=== PATIENT | female | born 1985 | race Caucasian/White ===

== ENCOUNTER 2017-03-15 05:03 | Day surgery (SDC) | payer OTHER ==
[2017-03-14 14:09] VITALS: BMI 30.2
--- NOTE | 2017-03-15 09:13 | HP ---
Past Medical History - Primary Care Physician PCP:: Roxana Paulino - Admission Chief Complaint: 31 yrs , s/p lactational amenorrhea, LD 11/07/16 m requests for voluntory sterlization History of Present Illness: pt has care at [address] [place] [address] . Past MH 28-30 days, normal regular,cycle,normal blood loss, mild cramps on & off contraception in past h/o Nexplanon inserted , got removed after few days . sexually active , LD 11/07/16. breast feeding History Source: Patient, Medical Record Limitations to Obtaining History: No Limitations - Past Medical History CORN PICKER: No: Migraine, Seizure Cardiovascular: Yes: HTN (? h/o labile HTN during pregn) Pulmonary: No: Asthma Gastrointestinal: Yes: Hemorrhoids. No: Gastritis Renal/: No: UTI Reproductive: Yes: Other. No: Ectopic ( 03/28/16 h/o abn pap HSIL during pregn . 04/20/16 colposcopy bx HSIL& LSIl. 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 currently no meds. h/o HPV HR pos) Psych: Yes: Depression (mild depression sometimes, no meds reqd) - Past Surgical History Past Surgical History: Yes: None, Appendectomy (2010) Hx Myomectomy: No Hx Transabdominal Cerclage: No Additional Surgical History: 01/22/17 Cone Biopsy at [facility] - Smoking History Smoking history: Never smoked Have you smoked in the past 12 months: No - Alcohol/Substance Use Hx Alcohol Use: No History of Substance Use: reports: None - Social History History of Recent Travel: No Home Medications - Allergies Allergies/Adverse Reactions: Allergies Allergy/AdvReac Type Severity Reaction Status Date / Time No Known Allergies Allergy Verified 03/15/17 08:44 - Home Medications Home Medications: Ambulatory Orders Vit Calc,Iron,Folic [ Vitamins] 1 each PO DAILY 11/06/16 Ferrous Sulfate [Feosol] 325 mg PO BIDWM #60 ud 11/08/16 Ibuprofen [Motrin -] 200 mg PO Q4H PRN #0 tablet 11/08/16 Vitamins (Sjr) - 1 tab PO DAILY #30 tablet 11/08/16 Physical Exam-CHOCOLATIER Vital Signs: Vital Signs Temperature 97.7 F 03/15/17 08:26 Pulse Rate 53 L 03/15/17 08:26 Respiratory Rate 16 03/15/17 08:26 Blood Pressure 109/60 03/15/17 08:26 O2 Sat by Pulse Oximetry (%) 99 03/15/17 08:26 Constitutional: Yes: Well Nourished Eyes: Yes: WNL HENT: Yes: WNL Neck: Yes: WNL Cardiovascular: Yes: Pulse Irregular Respiratory: Yes: WNL Gastrointestinal: Yes: WNL, Normal Bowel Sounds, Soft ...Rectal Exam: Yes: WNL Renal/: Yes: WNL Pelvis: Yes: WNL External Genitalia: Yes: Normal Vaginal Exam: Yes: Normal Cervix: Yes: Normal Uterus: Yes: Normal, Freely Moveable, Anteverted, Firm. No: Tender Adnexa: Normal: Bilateral, Not Palpable: Bilateral Breast(s): Yes: WNL, Discharge from Nipple (milk secretion , breast feeding). No: Mass Musculoskeletal: Yes: WNL Extremities: Yes: WNL. No: Calf Tenderness Edema: No Integumentary: Yes: WNL, Incision (appendectomy scar in RLQ) Wound/Incision: Yes: Excoriated ...Motor Strength: WNL Psychiatric: Yes: WNL, Alert, Oriented Labs: Laboratory Tests 11/07/16 03/11/17 03/11/17 05:30 19:13 19:13 WBC Hgb Hct Plt Count Neutrophils % Lymphocytes % Monocytes % INR 0.89 PTT (Actin FS) 29.3 Sodium 140 Potassium 3.8 Chloride 102 Carbon Dioxide 26 D BUN 8 D Creatinine 0.5 L D Random Glucose 86 AST 34 ALT 51 Beta HCG, Quant < 1.0 Ur Leukocyte Esterase 3+ H Urine RBC 3 Urine WBC 24 Urine HCG, Qual 03/11/17 03/15/17 19:13 08:05 WBC 7.7 D Hgb 13.4 D Hct 40.1 D Plt Count 256 D Neutrophils % 55.9 D Lymphocytes % 36.9 D Monocytes % 5.4 INR PTT (Actin FS) Sodium Potassium Chloride Carbon Dioxide BUN Creatinine Random Glucose AST ALT Beta HCG, Quant Ur Leukocyte Esterase Urine RBC Urine WBC Urine HCG, Qual Negative Problem List - Problem (1) Multiparity Code(s): Z64.1 - PROBLEMS RELATED TO MULTIPARITY Assessment/Plan 31 yrs , requests for voluntory sterlization Plan pelviscopic bilateral tubal fulgration
[2017-03-15] MEDS ORDERED: MIDAZOLAM HCL 2 MG/2 ML SINGLE DOSE VIAL ONE (09:40)
[2017-03-15] MEDS ORDERED: PROPOFOL 20 ML ONE (09:40)
[2017-03-15] MEDS ORDERED: ROCURONIUM BROMIDE 50 MG/5 ML VIAL ONE (09:40)
[2017-03-15] MEDS ORDERED: LIDOCAINE HCL/PF 2% SDV 5ML VIAL ONE (09:40)
[2017-03-15] MEDS ORDERED: BUPIVACAINE HCL/PF (5 MG/ML) 30 ML VIAL IJ ONE (10:58)
[2017-03-15] MEDS ORDERED: GLYCOPYRROLATE 0.2 MG/1 ML VIAL ONE ×2 (10:59→11:00)
[2017-03-15] MEDS ORDERED: NEOSTIGMINE METHYLSULFATE 0.5 MG/ML - 10 ML MDV ONE (10:59)
[2017-03-15] MEDS ORDERED: ONDANSETRON 4 MG/2 ML VIAL IVPUSH PRN (11:13)
[2017-03-15] MEDS ORDERED: PROMETHAZINE HCL 25 MG/1 ML VIAL IVPUSH PRN (11:13)
[2017-03-15] MEDS ORDERED: oxyCODONE HCL 5 MG TABLET PO PRN (11:13)
--- NOTE | 2017-03-15 11:23 | OP ---
Operative Note - Note: Operative Date: 03/15/17 Pre-Operative Diagnosis: multiparity, voluntory sterlization Operation: Pelviscopic Bilateral salpingectomy Findings: UT AV , NS,. Mobile Both Tubes & Ovaries normal culde sac free Both tubes excised upto cornual end with Ligasure biploar cautery Surgeon: Roxana Paulino Department Editor: Venecia García) Anesthesiologist/SPINE SPECIALIST: Nate Bush Anesthesia: General Specimens Removed: Ltube. Rt Tube Estimated Blood Loss (mls): 2 Drains, Volume Out (mls): 250 Fluid Volume Replaced (mls): 800 Operative Report Dictated: Yes
[2017-03-15] MEDS ORDERED: IBUPROFEN 600 MG TABLET (FP) PO PRN (11:28)
[2017-03-15] MEDS ORDERED: ACETAMINOPHEN 325 MG TABLET (FP) PO PRN (11:28)
[2017-03-15 12:08] VITALS: TEMP 97.8
[2017-03-15] MEDS ORDERED: oxyCODONE HCL 5 MG TABLET ONE (12:36)
[2017-03-15 13:05] VITALS: BP 112/57; PULSE 75
--- NOTE | 2017-03-15 13:35 | OP ---
DATE OF OPERATION: 03/15/2017 PREOPERATIVE DIAGNOSIS: Multiparity, voluntary sterilization. OPERATION DONE: Bilateral pelviscopic salpingectomy. SURGEON: Roxana Paulino MD SHELL FREEZING MACHINE OPERATOR SURGEON: OCTAVIANO Back ANESTHESIOLOGIST: Nate Bush MD FINDINGS: A 31-year-old 3, para 3-0-0-3, test negative, last delivery was November 07, 2016. Patient has lactational amenorrhea and she is breast feeding. PROCEDURE: Patient was taken to the operating room table and general anesthesia was given. Abdomen, pubis, perineum were painted with Betadine, draped in usual manner. She was placed in the lithotomy position before prep and then timeout was done. Pelvic examination was done. Uterus was anteverted, normal size, mobile. Cervix was posterior. Adnexae were not palpable. Weighted speculum was put. Anterior lip of the cervix was held with a single-tooth tenaculum. ZUMI cannula was introduced and then tenaculum and the speculum was removed. Vela catheter was placed. Proceeded with the pelviscopy. Gloves were changed and the position was readjusted. Then, small incision was made at the umbilicus and Veress needle was introduced. CO2 was insufflated into the peritoneal cavity and then 5-mm trocar and cannula were introduced in from the umbilical incision. Intraperitoneal insertion was confirmed and first left lower quadrant another 5-mm trocar and cannula were introduced after making the incision. The pelvic viscera were inspected and from the right side right lower quadrant incision was made and 5-mm trocar and cannula were introduced. The uterus was normal. Both tubes and ovaries were normal. Cul-de-sac was free from the right side. First, the left tube was cauterized & cut with Ligasure bipolar cautery in multiple serial steps from the fimbrial end towards the cornual end in the mesosalpinx area. Close to the tube , the mesosalpinx was cauterized and cut, cauterized and cut until cornual end was reached and then the cornual end was cauterized. Hemostasis was checked and then the tube was removed with a grasper. Similar procedure also was done on the right tube and hemostasis was checked. Patient tolerated procedure well. Upper abdomen was inspected also which was normal and gas was removed from the abdomen and all the trocars were removed. Marcaine was infiltrated at all 3 incisions with Biosyn deep suture was taken and the skin was approximated with Dermabond. The ZUMI cannula and the Vela catheter were removed and the patient was transferred to the recovery room in stable condition. She received 800 mL of crystalloid solution. Urine output was 250 in the Vela bag. Anthony [id number] MTDD
[2017-03-15] MEDS ORDERED: BUPIVACAINE HCL/PF 0.5% (5MG/ML) 10 ML VIAL ONE (14:33)
--- NOTE | 2017-03-18 13:05 | PATH ---
Surgical Pathology Report Patient Name: GUILLERMO VILLELA [facility]. Rec. #: [id number] /Age/Gender: 1985 (Age: 31) / F Account: [id number] Location: [facility] SURGICAL Taken: 03/15/2017 Received: 03/15/2017 Reported: 03/18/2017 Physicians: Roxana Paulino M.D. Specimen(s) Received A: LEFT FALLOPIAN TUBE B: RIGHT FALLOPIAN TUBE Clinical History Multiparity, voluntary sterilization Final Diagnosis A. FALLOPIAN TUBE, RIGHT, SALPINGECTOMY: BENIGN FALLOPIAN TUBE WITH COMPLETE CROSS SECTION. B. FALLOPIAN TUBE, LEFT SALPINGECTOMY: BENIGN FALLOPIAN TUBE WITH COMPLETE CROSS SECTION. Electronically Signed Jorge Lake M.D. Gross Description A. Received in formalin labeled "right fallopian tube" is a 5.5 cm in length fimbriated portion of fallopian tube. The outer surface is mccurdy-pink and smooth. Sectioning reveals a pinpoint lumen. [place] sections are submitted in 2 cassettes as follows: 1-fimbria; 2-cross sections of fallopian tube. B. Received in formalin labeled "left fallopian tube" are 2 portions of fallopian tube measuring 2.0 and 2.5 cm in length. The longer portion displays attached fimbria. The outer surfaces are mccurdy-pink and smooth. Sectioning reveals a pinpoint lumen. [place] sections are submitted in 2 cassettes as follows: 1-fimbria; 2-cross sections of fallopian tube. /03/15/2017/03/15/2017
--- NOTE | 2017-03-22 07:51 | SURG ---
Surgery Automation Developer Note Automation Developer: Venecia García PA-C Date of Service: 03/15/17 Diagnosis: multiparity, voluntary sterilization Procedure: laparoscopic bilateral salpingectomy I was present for the entirety of the operative procedure. For further detail, please refer to operative report. Visit type - Case Type Case Type: Scheduled Admission
== END 2017-03-15 13:40 | disposition home or self-care (01) ==
LOC: JASU-SURG 05:03
PROVIDERS: ATTEND Obstetrics & Gynecology
PROC: 0UB74ZZ Excision of Bilateral Fallopian Tubes, Percutaneous Endoscopic Approach (ICD-10-PCS; principal; 2017-03-15 09:30)
DX: Z30.2 Encounter for sterilization (principal); Z64.1 Problems related to multiparity
CPT/HCPCS: 84703; 88302-TC; 94760

== ENCOUNTER 2018-01-14 10:25 | Emergency (ER) | payer OTHER ==
[2018-01-14 10:40] VITALS: BMI 26.9
--- NOTE | 2018-01-14 10:51 | PDOC ---
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 Perdue, also had cone biopsy 01/[address] [facility] showing CIN2 with clear margins, who p/w pelvic pain. She was seen by her HEAD OF MEASUREMENT & INSIGHTS four days ago and had pelvic exam and PAP smear. Her provider reportedly did not see any abnormalities on exam, and the patient does not know the results of the PAP yet. She had an onset of minimal pain four days ago at the time of the exam, and discussed this with Dr. Perdue, but was not concerned at the time because the pain was minimal. However over the past two days the pain increased. It was fluctuating at first, but is now a constant 8/10 radiating to the back (left worse than right low back). She took Motrin at home for the pain without relief. She additionally notes mild headache recently, but denies fever , chills, nausea, vomiting, dizziness, chest pain, SOB, pain on urination, strange colors/smells to urine, blood in the urine, vaginal bleeding or discharge, diarrhea, constipation, night sweats, weight loss, swollen lymph nodes, or other symptoms. <Mirna Martinez - Last Filed: 01/14/18 16:07> - General Chief Complaint: Pain, Acute Stated Complaint: RT SIDE PAIN Past History <Jt Hester - Last Filed: 01/14/18 15:45> - Past Medical History Anemia: No Asthma: No Cancer: No Cardiac Disorders: No CVA: No COPD: No CHF: No Dementia: No Diabetes: No GI Disorders: No Disorders: No HTN: No Hypercholesterolemia: No Liver Disease: No Seizures: No Thyroid Disease: No - Surgical History Abdominal Surgery: No Appendectomy: Yes (2011) Cardiac Surgery: No Cholecystectomy: No Lung Surgery: No Neurologic Surgery: No Orthopedic Surgery: No - Immunization History Immunization Up to Date: Yes - Suicide/Smoking/Psychosocial Hx Smoking History: Never smoked Have you smoked in the past 12 months: No Hx Alcohol Use: No Drug/Substance Use Hx: No Substance Use Type: None Hx Substance Use Treatment: No <Mirna Martinez - Last Filed: 01/14/18 16:07> - Past Medical History Allergies/Adverse Reactions: Allergies Allergy/AdvReac Type Severity Reaction Status Date / Time No Known Allergies Allergy Verified 01/14/18 10:30 Home Medications: Ambulatory Orders Acetaminophen [Tylenol .Regular Strength -] 650 mg PO Q4H PRN #0 tablet Doxycycline Monohydrate [Mondoxyne Nl] 100 mg PO BID #14 capsule 01/14/18 Medroxyprogesterone Acetate [Provera] 5 mg PO DAILY #14 tablet 01/14/18 Review of Systems - Review of Systems Able to Perform ROS?: Yes Constitutional: No: Chills, Fever, Unexplained wgt Loss HEENTM: No: Nose Congestion, Throat Pain Respiratory: No: Cough, Shortness of Breath Cardiac (ROS): No: Chest Pain, Palpitations ABD/GI: Yes: Other (abdominal pain). No: Constipated, Diarrhea, Nausea, Vomiting : No: Burning, Dysuria Musculoskeletal: No: Back Pain, Neck Pain Integumentary: No: Bruising, Rash Neurological: Yes: Headache (mild). No: Numbness, Tingling, Weakness, Dizziness Endocrine: No: Unexplained Weight Gain, Unexplained Weight Loss <Mirna Martinez - Last Filed: 01/14/18 16:07> *Physical Exam - Vital Signs Last Vital Signs Temp Pulse Resp BP Pulse Ox 97.7 F 72 20 110/66 99 01/14/18 10:31 01/14/18 10:31 01/14/18 10:31 01/14/18 10:31 01/14/18 10:31 <Jt Hester - Last Filed: 01/14/18 15:45> - Vital Signs Last Vital Signs Temp Pulse Resp BP Pulse Ox 97.7 F 72 20 110/66 99 01/14/18 10:31 01/14/18 10:31 01/14/18 10:31 01/14/18 10:31 01/14/18 10:31 - Physical Exam General Appearance: Yes: Nourished, Appropriately Dressed, Other (well- appearing nontoxic female who is Gren[place]-speaking, answering questions appropriately, accompanied by SO and at the bedside). No: Apparent Distress HEENT: positive: EOMI, KAYLA, Normal Voice, Hearing Grossly Normal. negative: Scleral Icterus (R), Scleral Icterus (L), Nasal Congestion Neck: positive: Trachea midline, Supple. negative: Tender, Rigid Respiratory/Chest: positive: Lungs Clear, Normal Breath Sounds. negative: Respiratory Distress, Crackles, Rhonchi, Stridor, Wheezing Cardiovascular: positive: Regular Rhythm, Regular Rate. negative: Edema, JVD, Murmur Female Pelvic Exam: positive: normal external exam, cervical os closed, CMT, discharge (moderate thick white), adnexal tenderness (right>left). negative: vaginal bleeding Gastrointestinal/Abdominal: positive: Normal Bowel Sounds, Tender (moderate suprapubic and mild RLQ and LLQ and umbilical ttp, +ttp McBurney's point, no midline pulsatile masses, no hernias, prominent striae, negative Dejesus's sign) , Soft. negative: Organomegaly, Pulsatile Mass, Guarding Musculoskeletal: positive: Normal Inspection. negative: Decreased Range of Motion, Vertebral Tenderness Extremity: positive: Normal Capillary Refill, Normal Inspection, Normal Range of Motion. negative: Tender, Cyanosis Integumentary: positive: Normal Color, Dry, Warm. negative: Erythema, Rash, Bruising Neurologic: positive: academic administrator II-XII NML intact (grossly), Fully Oriented, Alert, Normal Mood/Affect, Normal Response, Motor Strength 5/5 <Martinez,Mary - Last Filed: 01/14/18 16:07> ED Treatment Course - LABORATORY CBC & Chemistry Diagram: 01/14/18 11:21 01/14/18 11:21 - ADDITIONAL ORDERS Additional order review: Laboratory Results 01/14/18 01/14/18 01/14/18 11:21 11:21 11:21 PT with INR INR Sodium 140 Potassium 3.8 Chloride 106 Carbon Dioxide 23 Anion Gap 11 BUN 10 Creatinine 0.5 L Creat Clearance w eGFR > 60 Random Glucose 91 Calcium 8.2 L Phosphorus 3.5 Magnesium 2.0 Total Bilirubin 0.2 D AST 15 ALT 27 Alkaline Phosphatase 91 Total Protein 7.5 Albumin 3.8 Lipase 155 Serum , Qual Negative Urine Color Straw Urine Appearance Clear Urine pH 6.0 Ur Specific [place] 1.008 Urine Protein Negative Urine Glucose (UA) Negative Urine Ketones Negative Urine Blood Negative Urine Nitrite Negative Urine Bilirubin Negative Urine Urobilinogen Negative Ur Leukocyte Esterase Negative 01/14/18 11:21 PT with INR 10.60 INR 0.94 Sodium Potassium Chloride Carbon Dioxide Anion Gap BUN Creatinine Creat Clearance w eGFR Random Glucose Calcium Phosphorus Magnesium Total Bilirubin AST ALT Alkaline Phosphatase Total Protein Albumin Lipase Serum , Qual Urine Color Urine Appearance Urine pH Ur Specific [place] Urine Protein Urine Glucose (UA) Urine Ketones Urine Blood Urine Nitrite Urine Bilirubin Urine Urobilinogen Ur Leukocyte Esterase 01/14/18 11:21 RBC 4.35 MCV 89.8 MCHC 34.7 RDW 13.3 MPV 8.0 Neutrophils % 67.9 D Lymphocytes % 25.6 D Monocytes % 5.1 Eosinophils % 1.0 Basophils % 0.4 - Medications Given in the ED: ED Medications Discontinued Medications Generic Name Dose Route Start Last Admin Trade Name Sun PRN Reason Stop Dose Admin Acetaminophen 1,000 mg 01/14/18 11:19 01/14/18 11:35 Ofirmev Injection - IVPB 01/14/18 11:20 1,000 mg ONCE ONE Administration Ceftriaxone Sodium 250 mg 01/14/18 14:56 01/14/18 15:29 Rocephin - IM 01/14/18 14:57 250 mg ONCE ONE Administration Doxycycline Hyclate 100 mg 01/14/18 14:56 01/14/18 15:18 Vibramycin - PO 01/14/18 14:57 100 mg ONCE ONE Administration Fluconazole 200 mg 01/14/18 13:13 01/14/18 14:09 Diflucan - PO 01/14/18 13:14 200 mg ONCE ONE Administration <Jt Hester - Last Filed: 01/14/18 15:45> - LABORATORY CBC & Chemistry Diagram: 01/14/18 11:21 01/14/18 11:21 <Mirna Martinez - Last Filed: 01/14/18 16:07> Medical Decision Making - Medical Decision Making 32 YOF h/o PID, HSV, HPV, ELMO 2 resected, p/w 4 days worsening pelvic pain acutely worse for the past day. No menses for more than a year. On exam VS wnl, mod suprapubic, RLQ, LLQ ttp, pelvic with moderate thick white discharge, sample sent to lab. DDX IBNLT PID, TOA, ruptured/hemorrhaging ovarian cyst, UTI, dysmenorrhea, endometritis, cervicitis, constipation, fibroids, etc. Ordered is CBCD CMP Mg Phos INR GC/Chlam/trich amplification (cervical swab), GC culture, Ofirmev, Toradol, transvaginal US. 01/14/18 13:22 Lab work unremarkable except slight low calcium 8.3, UA negative. Still awaiting amplification tests and patient will be called if positive results. Patient's ultrasound shows distended uterus with intrauterine pocket of fluid of unknown etiology. Page sent to patient's HEAD OF MEASUREMENT & INSIGHTS Dr. Perdue. 01/14/18 16:01 We did speak with Dr. Perdue who believes the pelvic fluid pocket could be retained menses. Recommends Depot pills 5 mg daily for 10 days, as well as our ceftriaxone/doxy treatment plan. The patient is comfortable with this plan and will call Dr. Perdue's office tomorrow morning. Repeat abdominal exam is benign. Return precautions are discussed. <Mirna Martinez - Last Filed: 01/14/18 16:07> *DC/Admit/Observation/Transfer - Discharge Dispostion Admit: No <KacieJt - Last Filed: 01/14/18 15:45> - Discharge Dispostion Admit: No <Mirna Martinez - Last Filed: 01/14/18 16:07> Diagnosis at time of Disposition: Pelvic pain - Discharge Dispostion Disposition: HOME Condition at time of disposition: Stable - Prescriptions Prescriptions: Doxycycline Monohydrate [Mondoxyne Nl] 100 mg PO BID #14 capsule Medroxyprogesterone Acetate [Provera] 5 mg PO DAILY #14 tablet - Referrals Referrals: Roxana Paulino MD [Staff Physician] - - Patient Instructions Printed Discharge Instructions: DI for Pelvic Inflammatory Disease Additional Instructions: Take antibiotic as prescribed. Take Provera control as prescribed for 2 weeks. Follow-up with your HEAD OF MEASUREMENT & INSIGHTS in one week. Return to the emergency department immediately for any fever severe worsening abdominal pain or for any concerns. Print Language: SYRIAC
[2018-01-14] MEDS ORDERED: ACETAMINOPHEN 1000 MG/100 ML VIAL (NON FORMULARY) IVPB ONE (11:19)
[2018-01-14] MEDS ORDERED: ACETAMINOPHEN INJECTION 100 ML IVPB ONE (11:26)
[2018-01-14 11:29] LABS: BASO % 0.4 % (0-2.0); HEMOGLOBIN 13.5 GM/dL (10.7-15.3); LYMPH % 25.6 % (8-40); MCH 31.1 pg (25.7-33.7); MCHC 34.7 g/dl (32.0-36.0); MEAN CELL VOLUME 89.8 fl (80-96); MONO % 5.1 % (3.8-10.2); NEUT % 67.9 % (42.8-82.8); PLATELET COUNT 241 K/MM3 (134-434); RBC 4.35 M/mm3 (3.60-5.2); RDW 13.3 % (11.6-15.6)
[2018-01-14 11:31] LABS: URINE APPEARANCE CLEAR; URINE BILIRUBIN NEGATIVE (NEGATIVE); URINE BLOOD NEGATIVE (NEGATIVE); URINE COLOR STRAW; URINE GLUCOSE (UA) NEGATIVE (NEGATIVE); URINE KETONE NEGATIVE (NEGATIVE); URINE LEUK ESTERASE NEGATIVE (NEGATIVE); URINE NITRITE NEGATIVE (NEGATIVE); URINE PROTEIN NEGATIVE (NEGATIVE); URINE UROBILINOGEN NEGATIVE mg/dL (0.2-1.0)
[2018-01-14 11:49] LABS: INR 0.94 (0.82-1.09); PROTHROMBIN TIME (PATIENT) 10.6 SEC (9.98-11.88)
[2018-01-14 12:07] LABS: ALBUMIN 3.8 g/dl (3.4-5.0); ANION GAP 11 (8-16); BLOOD UREA NITROGEN 10 mg/dL (7-18); CALCIUM 8.2 mg/dL (8.5-10.1); CHLORIDE 106 mmol/L (98-107); CO2 23 mmol/L (21-32); CREATININE 0.5 mg/dL (0.55-1.02); GLUCOSE,RANDOM 91 mg/dL (74-106); LIPASE 155 U/L (73-393); POTASSIUM 3.8 mmol/L (3.5-5.1); SGOT/AST 15 U/L (15-37); SGPT/ALT 27 U/L (12-78); SODIUM 140 mmol/L (136-145)
[2018-01-14 12:10] LABS: ALK PHOS 91 U/L (45-117); BILIRUBIN,TOTAL 0.2 mg/dL (0.2-1.0); PHOSPHOROUS 3.5 mg/dL (2.5-4.9); TOT PROT 7.5 g/dl (6.4-8.2)
--- NOTE | 2018-01-14 13:07 | PDOC ---
Attending Attestation - HPI HPI: 01/14/18 13:18 The patient is a 32-year-old female, , with a significant past medical history of PID, HSV on buttocks, HPV, and s/p bilateral salpingectomy (03/2017), who presents to the emergency department with pelvic pain for 4 days. She states she had a pelvic exam with Dr. Paulino the same day that the pain started, but the pain was present before the exam. She states the pain started out as mild and fluctuating, but has since become more severe and constant. She reports the pain radiates to her low back, left low back worse than right. She also notes a mild headache. The patient denies chest pain, shortness of breath, and dizziness. The patient denies fever, chills, diaphoresis, nausea, vomit, diarrhea and constipation. The patient denies dysuria, frequency, urgency, hematuria, vaginal bleeding or discharge. <GerPat - Last Filed: 01/14/18 13:18> - Resident Resident Name: Mirna Martinez - ED Attending Attestation I have performed the following: I have examined & evaluated the patient, The case was reviewed & discussed with the resident, I agree w/resident's findings & plan, Exceptions are as noted - Physicial Exam PE: 01/14/18 14:48 Vitals: Triage Vital signs reviewed General Appearance: no acute distress, well nourished well developed, Head: Atraumatic, Chest Wall: Nontender Cardiac: Regular rate and rhythym, no murmurs, no rubs, no gallops, Lungs: Clear to auscultation bilateral, good air movement bilaterally, Abdomen: Soft, non distended, normal bowel sounds, non tender to palpation Extremities: Full range of motion to all extremities, no cyanosis, clubbing, or edema Skin: Warm and dry, no rashes or lesions, no rash, no petechiae Neuro: AOX3; Cranial Nerves 2-12 grossly intact, Strength intact to all extremities, Sensation intact to all extremities Psych: normal mood, normal affect - Medical Decision Making 01/14/18 15:57 Patient well-appearing no apparent distress very mild suprapubic tenderness on exam there was mild CMT on the resident's pelvic examination with some discharge consistent with yeast infection. No fever no elevated white blood cell count laboratory analysis otherwise unremarkable. Given 5 day history of symptomatology waxing and waning symptoms very low suspicion for acute intra- abdominal surgical process at this time. Ultrasound findings discussed with patient's RADIOLOGICAL TECHNOLOGIST. She believes the fluid seen in the endometrial canal is from irregular menses recommended Provera 5 mg daily for the next 2 weeks agrees with plan for outpatient PID treatment with Dr. deleon and ceftriaxone given in the ED. Patient will follow-up with her RADIOLOGICAL TECHNOLOGIST 1 week. She'll return to the emergency department for any severe worsening symptoms or for any concerns. <Jt Hester - Last Filed: 01/14/18 15:57>
[2018-01-14] MEDS ORDERED: FLUCONAZOLE 100 MG TABLET (UD) PO ONE (13:13)
[2018-01-14] MEDS ORDERED: FLUCONAZOLE 100 MG TABLET (UD) ONE (14:03)
[2018-01-14] MEDS ORDERED: DOXYCYCLINE HYCLATE 100 MG CAPSULE PO ONE ×2 (14:56→15:10)
[2018-01-14] MEDS ORDERED: cefTRIAXone SODIUM 1 GM VIAL ONE (15:10)
[2018-01-14 16:37] VITALS: BP 106/71; PULSE 70; TEMP 97.8
== END 2018-01-14 16:37 | disposition home or self-care (01) ==
LOC: JER 10:25
PROC: 3E033NZ Introduction of Analgesics, Hypnotics, Sedatives into Peripheral Vein, Percutaneous Approach (ICD-10-PCS; principal; 2018-01-14)
PROC: 3E02329 Introduction of Other Anti-infective into Muscle, Percutaneous Approach (ICD-10-PCS; 2018-01-14)
DX: N73.8 Other specified female pelvic inflammatory diseases (principal)
CPT/HCPCS: 36415; 76830-TC; 80053; 81003; 83690; 83735; 84100; 84703; 85025; 85610; 87081; 87086; 87491; 87591; 87661; 96372; 96374; 99284-25; J0131

== ENCOUNTER 2021-03-22 10:27 | Emergency (ER) | payer OTHER ==
[2021-03-22 10:41] VITALS: BP 127/78; PULSE 64; TEMP 97.9; BMI 30.8
[2021-03-22 11:34] LABS: EPI CELLS 13 /uL (0-25.1); HCG,QUALITATIVE URINE Negative; HYALINE CASTS 0 /uL (0-3.1); PH,URINE 7.5 (5.0-8.0); URINE APPEARANCE CLEAR; URINE BACTERIA 184 /uL (0-1359); URINE BILIRUBIN NEGATIVE (NEGATIVE); URINE COLOR YELLOW; URINE GLUCOSE (UA) NEGATIVE (NEGATIVE); URINE KETONE NEGATIVE (NEGATIVE); URINE LEUK ESTERASE NEGATIVE (NEGATIVE); URINE NITRITE NEGATIVE (NEGATIVE); URINE PROTEIN NEGATIVE (NEGATIVE); URINE RBC 12 /uL (0-23.9); URINE UROBILINOGEN 0.2 mg/dL (0.2-1.0); URINE WBC 2 /uL (0-25.8)
== END 2021-03-22 11:54 | disposition home or self-care (01) ==
LOC: JER 10:27 → JERFT 10:27
DX: N64.4 Mastodynia (principal); M54.6 Pain in thoracic spine
CPT/HCPCS: 81003; 84703; 87086; 99283-25

== ENCOUNTER 2024-11-13 20:04 | Emergency (ER) | payer OTHER ==
[2024-11-13 20:10] VITALS: RESP 18; TEMP 99.1; BMI 29.2
[2024-11-13 21:23] LABS: BASO % 0.6 % (0-2.0); EOS % 0.2 % (0-4.5); HEMATOCRIT 35.5 % (32.4-45.2); HEMOGLOBIN 11.9 GM/dL (10.7-15.3); MCH 29.6 pg (25.7-33.7); MCHC 33.5 g/dl (32.0-36.0); MEAN CELL VOLUME 88.2 fl (80-96); MONO % 7.4 % (3.8-10.2); NEUT % 75.8 % (42.8-82.8); PLATELET COUNT 295 10^3/uL (134-434); RBC 4.03 M/mm3 (3.60-5.2); RDW 12.7 % (11.6-15.6); WHITE BLOOD COUNT 12.8 K/mm3 (4.0-10.0)
[2024-11-13 21:44] LABS: INR 1.15 (0.83-1.09); PROTHROMBIN TIME (PATIENT) 12.9 SEC (9.7-13.0)
[2024-11-13 21:45] LABS: POTASSIUM 3.5 mmol/L (3.5-5.1)
[2024-11-13 21:47] LABS: ACTIVATED PTT 34.2 SECONDS (25.2-36.5)
[2024-11-13 21:53] LABS: BLOOD UREA NITROGEN 8.7 mg/dL (7-18)
[2024-11-13 21:54] LABS: ALBUMIN 3.4 g/dl (3.4-5.0)
[2024-11-13 21:56] LABS: CREATININE 0.5 mg/dL (0.55-1.3)
[2024-11-13 21:57] LABS: BILIRUBIN,TOTAL 0.4 mg/dL (0.2-1)
[2024-11-13 21:58] LABS: TOT PROT 7.5 g/dl (6.4-8.2)
[2024-11-13 21:58] LABS: PH,URINE 6.5 (5.0-8.0); URINE APPEARANCE CLEAR; URINE BILIRUBIN NEGATIVE (NEGATIVE); URINE COLOR YELLOW; URINE GLUCOSE (UA) NEGATIVE (NEGATIVE); URINE KETONE 1+ (NEGATIVE); URINE LEUK ESTERASE NEGATIVE (NEGATIVE); URINE NITRITE NEGATIVE (NEGATIVE); URINE PROTEIN NEGATIVE (NEGATIVE); URINE UROBILINOGEN 0.2 mg/dL (0.2-1.0)
[2024-11-13 22:08] LABS: EPI CELLS 11.3 /uL (0-25.1); URINE BACTERIA 153.9 /uL (0-1359); URINE WBC 6.5 /uL (0-25.8)
[2024-11-13] MEDS ORDERED: ACETAMINOPHEN INJECTION 100 ML ONE (22:50)
[2024-11-13] MEDS ORDERED: FAMOTIDINE 20 MG/50 ML IVPB 20 MG/50 ML MG IVPB ONE (22:50)
[2024-11-13 23:15] VITALS: BP 113/66; PULSE 82
[2024-11-14] MEDS: ACETAMINOPHEN 1000 MG/100 ML BAG IVPB ONE (00:09)
[2024-11-14] MEDS: FAMOTIDINE 20 MG/50 ML IVPB 20 MG/50 ML MG IVPB ONE (00:09)
== END 2024-11-14 02:10 | disposition home or self-care (01) ==
LOC: JER 20:04
PROC: 3E033GC Introduction of Other Therapeutic Substance into Peripheral Vein, Percutaneous Approach (ICD-10-PCS; principal; 2024-11-13)
PROC: 3E033NZ Introduction of Analgesics, Hypnotics, Sedatives into Peripheral Vein, Percutaneous Approach (ICD-10-PCS; 2024-11-13)
DX: K80.50 Calculus of bile duct without cholangitis or cholecystitis without obstruction (principal); R10.11 Right upper quadrant pain; Z20.822 Contact with and (suspected) exposure to COVID-19
CPT/HCPCS: 0241U-QW; 36415; 76705-TC; 80053; 81003; 83690; 85025; 85610; 85730; 86850; 86900; 86901; 87086; 93005; 93010; 99285-25; J0131